=== PATIENT | male | born 1985 | race Caucasian/White ===

== ENCOUNTER 2023-06-24 15:13 | Outpatient (AMB) | payer OTHER, SELFPAY ==
--- NOTE | 2023-06-24 15:20 | A.OFFPC_ITS ---
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 for records Intake Note: pt is here for est care, patient states he has hx dm, high blood pressure Movie Shot Cameraman Required: No Accompanied by: Self / Same As Patient Allergies No Known Allergies Allergy (Verified 06/24/23 15:24) Medication List - Last Reconciled 06/24/23 by RISSA Hills lisinopril 2.5 mg PO DAILY metformin 850 mg PO BID Tobacco use date assessed: 06/24/23 Dental Screening Dental Screen Date: 06/24/23 Did you have a dental visit in the last 12 months?: Yes Did you have a dental problem in the last 6 months where you did not have access to dental care?: No Was dental information given to patient?: Patient has dentist HPI HPI Comments History of Present Illness Details Patient is a 37-year-old male who I am meeting for the 1st time. He has a past medical history significant for diabetes type 2, and hypertension. Patient has not seen a primary care provider in 18 years. Patient was recently at physical for work where his blood sugar was 373 In office today patient's A1c is 14. He is not currently taking any medication. He reports episodes of polyuria mostly at night. Denies polydipsia. Patient is not showing signs of ketoacidosis at the appointment today. Patient is due for microalbumin, fasting labs, referral for Podiatry and Ophthalmology. Patient denies chest pain, shortness a breath, polyuria, polydipsia, excessive sweating, confusion, dizziness, numbness. 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 1. Little interest or pleasure in doing things: not at all 2. Feeling down, depressed, or hopeless: not at all 3. Trouble falling or staying asleep, or sleeping too much: not at all 4. Feeling tired or having little energy: not at all 5. Poor appetite or overeating: not at all 6. Feeling bad about yourself - or that you are a failure or have let yourself or your family down: not at all 7. Trouble concentrating on things, such as reading the newspaper or watching television: not at all 8. Moving or speaking so slowly that other people could have noticed. Or the opposite - being so fidgety or restless that you have been moving around a lot more than usual: not at all 9. Thoughts that you would be better off or of hurting yourself in some way: not at all Total score: 0 Depression Screening Interpretation: Negative Depression Screening Done: Yes 51766 - PHQ-9 Billing: Yes Source: Developed by Drs. Campos Koch, Meghan Mac, Trey Lawson and colleagues, with an educational tammie from [employer]. AUDIT C Alcohol Use Questionnaire (AUDIT-C) 1. How often do you have a drink containing alcohol?: Monthly or less 2. How many drinks containing alcohol do you have on a typical day when you are drinking?: 1 or 2 3. How often do you have six or more drinks on one occasion?: Never Total Score: 1 Score Reviewed/Action Taken: Yes EVELYN-7 AMB Questionnaire EVELYN-7 Date EVELYN - 7 assessed: 06/24/23 Feeling nervous, anxious, or on edge: 0 = Not at all Not being able to stop or control worryin = Not at all Worrying too much about different things: 0 = Not at all Trouble relaxin = Not at all Being so restless that it is hard to sit still: 0 = Not at all Becoming easily annoyed or irritable: 0 = Not at all Feeling afraid as if something awful might happen: 0 = Not at all Total EVELYN-7 score (0-4 normal; 5-9 mild; 10-14 moderate; 15-21 severe): 0 Source: Developed by Drs. Campos Koch, Meghan Mac, Trey Lawson and colleagues, with an educational tammie from [employer]. EVELYN-7 Assessment Billing EVELYN-7 Assessment Tool: EVELYN-7 Assessment 17993 Review of Systems Const All systems reviewed & are unremarkable except as noted in HPI and below Denies body aches, Denies excessive sweating, Denies fatigue, Denies fever(s), Denies headache(s), Denies malaise and Denies night sweats Eyes Denies blurry vision, Denies diplopia and Denies loss of vision ENT Denies dizziness and Denies headache(s) Card Denies chest pain, Denies palpitations and Denies dyspnea Resp Denies dyspnea GI Denies diarrhea, Denies nausea and Denies vomiting Reports urinary frequency (Intermittently, at night only.) Musc Denies tingling Neuro Denies confusion, Denies dizziness, Denies headache(s), Denies loss of vision, Denies tingling and Denies paresthesias Psych Denies confusion, Denies homicidal ideation and Denies suicidal ideation Endo Denies excessive sweating, Denies fatigue, Denies polydipsia and Denies palpitations Physical exam (Primary Care) BMI result Body Mass Index 32.8 BMI Assessment/Plan discussion: High Depression Screening Interpretation: Negative Const Other: Appearance: Alert.? Oriented X3.? No acute distress.? Head: Normocephalic, atraumatic, Eyes: Pupils equal, round and reactive to light.? Neck: Normal inspection.? Neck supple.? CVS: Normal heart rate and rhythm.? Pulses normal.? Respiratory: No respiratory distress.? Breath sounds normal.? Skin: Skin warm and dry.? Normal skin color.? Normal skin turgor.? Neuro: Oriented X 3.? No motor deficit.? No sensory deficit. General: No confusion Orientation/consciousness: No confusion Neuro General: No confusion Results AMB Hemoglobin A1c AMB Hemoglobin A1c > 14 % Last Edit by Leroy Isbell CMA on 06/24/23 15 :49 AMB Random Glucose (hemocue) AMB Random Glucose (hemocue) 408 mg/dL Last Edit by Leroy Isbell CMA o n 06/24/23 16:08 Assessment and Plan Assessment & Plan (1) Uncontrolled type 2 diabetes mellitus with hyperglycemia: Comment: Patient has come be started on metformin 750 mg b.i.d. ER. Will start patient on 10 mg Jardiance p.o. in the morning. Patient has been educated on dietary modifications and exercise. Patient has been instructed to take blood sugar at least twice per day over the next 2 weeks. Patient is meeting with community nurse navigator to you have diabetic Education in 2 weeks. Patient has been educated on signs of worsening symptoms and when to report to the emergency room. Patient states he understands Code(s): E11.65 - Type 2 diabetes mellitus with hyperglycemia Plan: Take your medications as prescribed. If you were prescribed antibiotics today, it is important that you take your medication to their entirety, do not skip any doses, do not finish them early. Return to the emergency department with new or worsening symptoms. Such as fevers, chills, chest pain, shortness of breath, nausea, vomiting, dizziness, headache, vision changes, lethargy In case of emergency call 911 Orders: Orders Vitamin B12 Today Z13.21 - Encounter for screening for nutritional disorder Comprehensive Met. Panel Today Z91.89 - Other specified personal risk factors, not elsewhere classified Complete Blood Count Auto Diff Today Z13.0 - Encounter for screening for diseases of the blood and blood-forming organs and certain disorders involving the immune mechanism AMB Random Glucose (hemocue) Today Z13.9 - Encounter for screening, unspecified AMB Hemoglobin A1c Today Z13.9 - Encounter for screening, unspecified Vitamin B6 Today Z13.21 - Encounter for screening for nutritional disorder Vitamin D 25-OH (D2 and D3) Today Z13.21 - Encounter for screening for nutritional disorder UA CC w/rflx Micro + Cult Today Z13.89 - Encounter for screening for other disorder TSH reflex Free T4 Today Z13.29 - Encounter for screening for other suspected endocrine disorder Microalbumin, Random (w Creat) Today Referrals Podiatry Referral E11.65 - Type 2 diabetes mellitus with hyperglycemia Ophthalmology Referral E11.65 - Type 2 diabetes mellitus with hyperglycemia Medications: New lisinopril 2.5 mg PO DAILY 30 tabs 0RF empagliflozin (Jardiance) 10 mg PO DAILY 30 tabs 0RF metformin ER 750 mg PO BID 60 tabs 0RF blood-glucose meter (FreeStyle Lite Meter kit) Take blood sugar once per day 1 ea 0RF lancets (FreeStyle Lancets) Take blood sugar once per day 100 ea 0RF blood sugar diagnostic (FreeStyle Lite Strips) Take blood sugar once per day. 100 ea 0RF Coding Level of Care Code New Pt Level 4 (82770) Diagnoses Uncontrolled type 2 diabetes mellitus with hyperglycemia E11.65 Additional Codes EVELYN-7 Assessment Billing - EVELYN-7 Assessment Tool: EVELYN-7 Assessment 71413 ([id number]) Time Spent (min) 31
[2023-06-24 15:23] VITALS: BP 132/80; PULSE 78; O2SAT 98; BMI 32.8
== END 2023-06-24 16:08 | disposition home or self-care (01) ==
PROVIDERS: PCP Nurse Practitioner Family; Visit Provider Nurse Practitioner Primary Care
DX: E11.65 Type 2 diabetes mellitus with hyperglycemia (principal)
CPT/HCPCS: 82948; 83036; 99204

== ENCOUNTER 2023-07-07 12:55 | Outpatient (AMB) | payer OTHER, SELFPAY ==
--- NOTE | 2023-07-07 13:00 | A.OFFPC_ITS ---
Vital Signs 07/07/23 13:01 Height 5 ft 6 in Weight 207 lb BMI 33.4 BP 140/80 H Blood Pressure Location Rt brachial Position Sitting Pulse 78 Pulse Source Pulse Oximeter Pulse Oximetry (%) 98 Oxygen Delivery Method Room Air Intake Visit Reasons: follow up Intake Note: pt is here for follow up, patient hasnt been able to start jardiance due to pharmacy Allergies No Known Allergies Allergy (Verified 07/07/23 13:32) Medication List - Last Reconciled 07/07/23 by RISSA Hills blood sugar diagnostic (FreeStyle Lite Strips) Take blood sugar once per day. blood-glucose meter (FreeStyle Lite Meter kit) Take blood sugar once per day empagliflozin (Jardiance) 10 mg PO DAILY lancets (FreeStyle Lancets) Take blood sugar once per day lisinopril 5 mg PO DAILY metformin ER 750 mg PO BID Tobacco use date assessed: 06/24/23 Dental Screening Dental Screen Date: 06/24/23 HPI HPI Comments History of Present Illness Details Patient is a 37-year-old male in today for diabetic follow-up. He was seen in office 2 weeks prior and was placed on metformin and Jardiance. Patient has been asked to record sugar levels at home bring them to today's visit. He has referrals in for Podiatry and Ophthalmology. The appointment today patient states he has not been able to start the Jardiance medication. He has been instructed to pick that up the soon as possible from the pharmacy and start immediately. He reports blood sugar measurements at home have ranged between 180 and 210. States episodes of polyuria and polydipsia have decreased. He denies chest pain, SOB, Dizziness, Nausea, vomiting, or diarrhea. He will schedule a diabetic education session with community navigation in 2 week. He has been instructed to increase his lisinopril dose to 5mg PO daily, and to take blood pressure measurements at home. 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 Campos Koch, Meghan Mac, Trey Lawson and colleagues, with an educational tammie from [employer]. Review of Systems Const All systems reviewed & are unremarkable except as noted in HPI and below Denies chills and Denies fever(s) ENT Denies dizziness Card Denies chest pain and Denies dyspnea Resp Denies dyspnea GI Denies diarrhea, Denies nausea and Denies vomiting Musc Denies tingling Neuro Denies dizziness, Denies tingling and Denies paresthesias Endo Denies polydipsia and Denies polyuria Physical exam (Primary Care) Care Plan Goal for BP management: Patient will have lisinopril dose increased from 2.5-5 mg p.o. daily. Next steps: Patient has follow-up in 2 weeks with community nurse navigator for diabetic Education and blood pressure check Tobacco/Smoking Status: Tobacco use Status Tobacco use date assessed 06/24/23 07/07/23 13:01 Patient Tobacco Use Status Former Tobacco user 07/07/23 13:01 Tobacco use type Smokeless Tobacco 07/07/23 13:01 e-Cigarette/Vaping Use Currently Using 07/07/23 13:01 Const Other: Appearance: Alert.? Oriented X3.? No acute distress.? Head: Normocephalic, atraumatic CVS: Normal heart rate and rhythm.? Pulses normal.? Respiratory: No respiratory distress.? Breath sounds normal.? Skin: Skin warm and dry.? Normal skin color.? Normal skin turgor.? Extremities: No lower extremity edema.? Neuro: Oriented X 3.? No motor deficit.? No sensory deficit. Assessment and Plan Assessment & Plan (1) Uncontrolled type 2 diabetes mellitus with hyperglycemia: Comment: Patient has come be started on metformin 750 mg b.i.d. ER. Will start patient on 10 mg Jardiance p.o. in the morning. Patient has been educated on dietary modifications and exercise. Patient has been instructed to take blood sugar at least twice per day over the next 2 weeks. Patient is meeting with community nurse navigator to you have diabetic Education in 2 weeks. Patient has been educated on signs of worsening symptoms and when to report to the emergency room. Patient states he understands Patient will also be getting labs in the next week. Code(s): E11.65 - Type 2 diabetes mellitus with hyperglycemia (2) Hypertension: Comment: 5 mg lisinopril p.o. daily. Patient should have blood pressure recheck in 2 weeks with nurse navigator. Code(s): I10 - Essential (primary) hypertension Qualifiers: Hypertension type: primary hypertension Qualified Code(s): I10 - Essential (primary) hypertension Plan: Take your medications as prescribed. If you were prescribed antibiotics today, it is important that you take your medication to their entirety, do not skip any doses, do not finish them early. Return to the emergency department with new or orsening symptoms. Such as fevers, chills, chest pain, shortness of breath, nausea, vomiting, dizziness, headache, vision changes, lethargy In case of emergency call 911 Plan Follow-up with community nurse navigator in 2 weeks Coding Level of Care Code Est Pt Level 3 (49049) Diagnoses Uncontrolled type 2 diabetes mellitus with hyperglycemia E11.65 Primary hypertension I10 Hypertension type: primary hypertension Time Spent (min) 28
[2023-07-07 13:01] VITALS: BP 140/80; PULSE 78; O2SAT 98; BMI 33.4
== END 2023-07-07 13:23 | disposition home or self-care (01) ==
PROVIDERS: PCP Nurse Practitioner Family; Visit Provider Nurse Practitioner Primary Care
DX: E11.65 Type 2 diabetes mellitus with hyperglycemia (principal); I10 Essential (primary) hypertension
CPT/HCPCS: 99213

== ENCOUNTER 2023-08-04 15:06 | Outpatient (REF) | payer OTHER, SELFPAY ==
[2023-08-04 16:08] LABS: Appearance Urine Clear; Color Urine Yellow; Glucose Urine UA >=1000 mg/dL (Negative); Leukocyte Esterase Urine Negative (Negative); Nitrite Urine Negative (Negative); PH 7.5 (5.0-9.0); Specific Gravity - Urine >= 1.030 (1.005-1.025); UMIC TRIGGER UACC YES; Urine Blood Negative (Negative); Urine Ketones Trace mg/dL (Negative); Urine Protein Negative (Neg-Trace)
[2023-08-04 16:17] LABS: MANUAL DIFF FLAG NO
[2023-08-04 16:25] LABS: Basophils Percent Auto 0.3 % (0-2); Eosinophils Absolute Auto 0.1 X10*3/uL (0.0-0.4); Hematocrit 46.1 % (42.0-52.0); Hemoglobin 15.4 g/dl (14.0-18.0); Imm Gran Abs Auto 0.03 X10*3/uL (0.00-0.03); Imm Gran Pct Auto 0.3 % (0.0-0.4); Lymphocytes Absolute Auto 2.5 X10*3/uL (1.2-4.9); Lymphocytes Percent Auto 29.4 % (20-40); Mean Corpuscular HGB Conc 33.4 g/dl (31.0-36.0); Mean Corpuscular Hemoglobin 29.4 pg (27.0-33.0); Monocytes Absolute Auto 0.6 X10*3/uL (0.1-1.2); Monocytes Percent Auto 6.7 % (2-11); Neutrophils Absolute Auto 5.4 x10*3/uL (2.0-8.3); Neutrophils Percent Auto 62.3 % (45-73); Platelet Count 258 X10*3/uL (160-400); Red Blood Count 5.24 X10*6/uL (4.60-5.80); Red Cell Distribution Width 12.6 % (11.0-16.0); White Blood Count 8.6 X10*3/uL (4.8-10.8)
[2023-08-04 16:42] LABS: Alanine Aminotransferase 38 U/L (0-40); Albumin Level 4.8 g/dL (3.5-5.0); Alkaline Phosphatase 50 U/L (39-117); Anion Gap 10 (12-20); Aspartate Amino Transferase 23 U/L (5-37); Bilirubin Total 0.5 mg/dL (0.0-1.0); Blood Urea Nitrogen 13 mg/dL (9-16); Calcium 9.9 mg/dL (8.4-10.2); Carbon Dioxide 29 mmol/L (22-29); Chloride 105 mmol/L (96-108); Estimated Glomerular Filt Rate > 60; Glucose Random 110 mg/dL (60-115); Potassium 4.1 mmol/L (3.3-5.1); Sodium 140 mmol/L (135-145); Total Protein 7.8 g/dL (6.5-8.0)
[2023-08-04 16:58] LABS: TSH reflex Free T4 0.85 uIU/mL (0.32-4.0)
[2023-08-04 17:06] LABS: Creatinine Urine 77.66 mg/dL; Microalbum/Creatinine Ratio Ur 7.7 ug/mg cr (<30)
[2023-08-04 17:29] LABS: Vitamin B12 528 pg/mL (200-900)
[2023-08-04 18:48] LABS: Bacteria Urine None Seen (None Seen); Hyaline Casts Urine 0-2 /LPF (0-2); RBC Urine 0-2 /HPF (0-2); Squamous Epithelial Cell Urine 0-2 /HPF (0-2); WBC Urine 0-5 /HPF (0-5)
[2023-08-09 15:03] LABS: Vitamin B6 16.5 ng/mL (2.1-21.7)
[2023-08-09 15:43] LABS: Vitamin D 25-OH, D2 <4 ng/mL; Vitamin D 25-OH, D3 22 ng/mL; Vitamin D 25-OH, Total 22 ng/mL (30-100)
== END 2023-08-04 15:07 | disposition home or self-care (01) ==
LOC: HO.HMGCLDS 15:06
PROVIDERS: PCP Nurse Practitioner Primary Care; Visit Provider Nurse Practitioner Primary Care
DX: Z13.21 Encounter for screening for nutritional disorder (principal); Z91.89 Other specified personal risk factors, not elsewhere classified; Z13.0 Encounter for screening for diseases of the blood and blood-forming organs and certain disorders involving the immune mechanism; Z13.29 Encounter for screening for other suspected endocrine disorder
CPT/HCPCS: 36415; 80053; 81001; 82043; 82306; 82570; 82607; 84207; 84443; 85025

== ENCOUNTER 2023-08-09 13:46 | Outpatient (AMB) | payer OTHER, SELFPAY ==
--- NOTE | 2023-08-09 14:06 | A.OFFPC_ITS ---
Vital Signs 08/09/23 14:08 Height 5 ft 6 in Weight 213 lb BMI 34.4 BP 116/78 Blood Pressure Location Lt brachial Position Sitting Pulse 93 Pulse Source Pulse Oximeter Pulse Oximetry (%) 98 Oxygen Delivery Method Room Air Intake Visit Reasons: follow up for DB Intake Note: Pt is here for 3 mo f/u for diabetes Allergies No Known Allergies Allergy (Verified 08/09/23 15:31) Medication List - Last Reconciled 08/09/23 by RISSA Hills blood sugar diagnostic (FreeStyle Lite Strips) Take blood sugar once per day. blood-glucose meter (FreeStyle Lite Meter kit) Take blood sugar once per day empagliflozin (Jardiance) 10 mg PO DAILY lancets (FreeStyle Lancets) Take blood sugar once per day lisinopril 2.5 mg PO DAILY metformin ER 750 mg PO BID Tobacco use date assessed: 08/09/23 Dental Screening Dental Screen Date: 06/24/23 HPI HPI Comments History of Present Illness Details Patient is in for follow-up diabetes type 2. He was recently started on metformin 750 mg ER b.i.d., and Jardiance 10 mg p.o. daily. He was also started on lisinopril 2.5 mg p.o. daily. Patient is due for eye exam, has referral in. Patient is due for Podiatry, has referral in. He is able to take blood sugar measurements at home and states that they have elevated at the 130 to 140s range. Denies symptoms of polyuria polydipsia. When patient 1st status care with the office 2 months prior in office POC was 408. Newly diagnosed type 2 diabetic. States that he feels much better since starting the medication. Patient will have his Jardiance titrated up to 25 mg p.o. daily. He will be instructed to continue taking blood sugar measurements at home. Did have preliminary discussion about the potential for starting Tirzepatide if sugars re main elevated at home. Patient has been educated on foods to avoid. States he understands. 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 Campos Koch, Meghan Mac, Trey Lawson and colleagues, with an educational tammie from [employer]. Review of Systems Const All systems reviewed & are unremarkable except as noted in HPI and below Physical exam (Primary Care) Vital Signs: Last Vital Signs Pulse 93 08/09/23 14:08 BP 116/78 08/09/23 14:08 Pulse Ox 98 08/09/23 14:08 Oxygen Delivery Method Room Air 08/09/23 14:08 Care Plan Goal for BP management: BP is controlled. BMI result Body Mass Index 34.4 Tobacco/Smoking Status: Tobacco use Status Tobacco use date assessed 08/09/23 08/09/23 14:12 Patient Tobacco Use Status Former Tobacco user 08/09/23 14:12 Tobacco use type Smokeless Tobacco 08/09/23 14:12 e-Cigarette/Vaping Use Currently Using 08/09/23 14:12 Const Other: Appearance: Alert.? Oriented X3.? No acute distress.? Head: Normocephalic, atraumatic, Eyes: Sclera white. Neck: Normal inspection.? Neck supple.? CVS: Normal heart rate and rhythm.? Pulses normal.? Respiratory: No respiratory distress.? Breath sounds normal.? Neuro: Oriented X 3.? No motor deficit.? No sensory deficit. Results Reviewed Results Reviewed: Sodium 140 135-145 mmol/L Potassium 4.1 3.3-5.1 mmol/L CL 105 96-108 mmol/L CO2 29 22-29 mmol/L Gap 10 L 12-20 BUN 13 9-16 mg/dL Creat 0.84 0.5-1.4 mg/dL EGFR > 60 NOTE: For -Serbian individuals, multiply the result by 1.210. Chronic Kidney Disease: Estimated GFR < 60 mL/min/1.73m2 Severe Kidney Disease: Estimated GFR < 15 mL/min/1.73m2 Glucose, Random 110 60-115 mg/dL CA 9.9 8.4-10.2 mg/dL Total Bili 0.5 0.0-1.0 mg/dL AST (GOT) 23 5-37 U/L ALT (GPT) 38 0-40 U/L Protein, Total 7.8 6.5-8.0 g/dL Alb 4.8 3.5-5.0 g/dL Alk Phos 50 39-117 U/L TSH 0.85 0.32-4.0 uIU/mL Assessment and Plan Assessment & Plan Orders: Orders Lipid Panel Today E11.65 - Type 2 diabetes mellitus with hyperglycemia Medications: New empagliflozin (Jardiance) 25 mg PO DAILY 90 tabs 0RF Coding Level of Care Code Est Pt Level 3 (44121) Time Spent (min) 23
[2023-08-09 14:08] VITALS: BP 116/78; PULSE 93; O2SAT 98; BMI 34.4
== END 2023-08-09 14:43 | disposition home or self-care (01) ==
PROVIDERS: PCP Nurse Practitioner Family; Visit Provider Nurse Practitioner Primary Care
DX: E11.65 Type 2 diabetes mellitus with hyperglycemia (principal)
CPT/HCPCS: 99213

== ENCOUNTER 2023-10-26 14:21 | Outpatient (AMB) | payer OTHER, SELFPAY ==
[2023-10-26 14:25] VITALS: BP 142/80; PULSE 80; O2SAT 97; BMI 34.7
--- NOTE | 2023-10-26 14:25 | A.OFFPC_ITS ---
Vital Signs 10/26/23 14:25 Height 5 ft 6 in Weight 215 lb BMI 34.7 BP 142/80 H Blood Pressure Location Lt brachial Position Sitting Pulse 80 Pulse Source Pulse Oximeter Pulse Oximetry (%) 97 Intake Visit Reasons: 3M F/U DM labs Intake Note: pt is here for 3 month follow up regarding DM Occupational Rehabilitation Aide Required: No Accompanied by: Self / Same As Patient Allergies No Known Allergies Allergy (Verified 10/26/23 14:25) Medication List - Last Reconciled 10/26/23 by JAMES Vu blood sugar diagnostic (FreeStyle Lite Strips) Take blood sugar once per day. blood-glucose meter (FreeStyle Lite Meter kit) Take blood sugar once per day empagliflozin (Jardiance) 25 mg PO DAILY lancets (FreeStyle Lancets) Take blood sugar once per day lisinopril 5 mg PO DAILY metformin ER 750 mg PO BID Tobacco use date assessed: 08/09/23 Dental Screening Dental Screen Date: 06/24/23 HPI 3M F/U DM labs HPI Details Pt is a diabetic, on an TAMMIE. A1C in office today is 6.8. Microalbumin is up to date. Denies polyuria, polydipsia, and neuropathy. Pt denies any signs and symptoms of hypoglycemia and does know how to correct it. Will start mounjaro 2.5mg. WIll also send low dose statin. HTN: increasing lisinopril from 5mg to 10mg, encouraged pt to take his BP at home. [facility] Surgical History No pertinent past surgical history Family History Mother Heart problem Father Diabetes Social History Housing: Apartment Alcohol intake: current Alcohol intake frequency: holidays/special occasions only Alcohol type: beer Patient Tobacco Use Status: Former Tobacco user Tobacco use type: Smokeless Tobacco e-Cigarette/Vaping Use: Currently Using service: No Current occupational status: employed Current occupation: [employer] Current occupational exposures/hazards: No Cognitive needs: No Hearing needs: No Vision needs: No Questionnaire PHQ-9 Over the last 2 weeks, how often have you been bothered by any of the following problems? 1. Little interest or pleasure in doing things: not at all 2. Feeling down, depressed, or hopeless: not at all 3. Trouble falling or staying asleep, or sleeping too much: not at all 4. Feeling tired or having little energy: not at all 5. Poor appetite or overeating: not at all 6. Feeling bad about yourself - or that you are a failure or have let yourself or your family down: not at all 7. Trouble concentrating on things, such as reading the newspaper or watching television: not at all 8. Moving or speaking so slowly that other people could have noticed. Or the opposite - being so fidgety or restless that you have been moving around a lot more than usual: not at all 9. Thoughts that you would be better off or of hurting yourself in some way: not at all Total score: 0 Depression Screening Interpretation: Negative Depression Screening Done: Yes 06331 - PHQ-9 Billing: Yes Source: Developed by Drs. Campos Koch, Meghan Mac, Trey Lawson and colleagues, with an educational tammie from [employer]. Thrive Questionnaire Date Thrive assessed: 10/26/23 I am a: Patient What is your living situation today?: I have a steady place to live Within the past 12 months, did the food you bought not last and you didn't have the money to get more?: Never true Within the past 12 months, did you worry whether your food would run out before you got money to buy more?: Never true Do you have trouble paying for medicines?: No Do you have trouble getting transportation to medical appointments?: No Do you have trouble paying your heating and electricity bill?: No Do you have trouble taking care of your child, family member or friend?: No Do you have trouble with day-to-day activities such as bathing, preparing meals, shopping, managing finances, etc.?: No Are you currently unemployed and looking for a job?: No Are you interested in more education?: No Please select the resources that you would like help with: None Currently or been in a relationship where the following occur: No concerns reported THRIVE Score: 0 AUDIT C Alcohol Use Questionnaire (AUDIT-C) 1. How often do you have a drink containing alcohol?: Never 3. How often do you have six or more drinks on one occasion?: Never Total Score: 0 Score Reviewed/Action Taken: Yes EVELYN-7 AMB Questionnaire EVELYN-7 Date EVELYN - 7 assessed: 10/26/23 Feeling nervous, anxious, or on edge: 0 = Not at all Not being able to stop or control worryin = Not at all Worrying too much about different things: 0 = Not at all Trouble relaxin = Not at all Being so restless that it is hard to sit still: 0 = Not at all Becoming easily annoyed or irritable: 0 = Not at all Feeling afraid as if something awful might happen: 0 = Not at all Total EVELYN-7 score (0-4 normal; 5-9 mild; 10-14 moderate; 15-21 severe): 0 Source: Developed by Drs. Campos Koch, Meghan Mac, Trey Lawson and colleagues, with an educational tammie from [employer]. EVELYN-7 Assessment Billing EVELYN-7 Assessment Tool: EVELYN-7 Assessment 05126 Review of Systems Const Reports as per HPI Physical exam (Primary Care) Vital Signs: Last Vital Signs Pulse 80 10/26/23 14:25 BP 142/80 H 10/26/23 14:25 Pulse Ox 97 10/26/23 14:25 BMI result Body Mass Index 34.7 Tobacco/Smoking Status: Tobacco use Status Tobacco use date assessed 08/09/23 10/26/23 14:25 Patient Tobacco Use Status Former Tobacco user 10/26/23 14:25 Tobacco use type Smokeless Tobacco 10/26/23 14:25 e-Cigarette/Vaping Use Currently Using 10/26/23 14:25 PHQ-9: PHQ-9 Score PHQ-9: Total score 0 10/26/23 14:40 Depression Screening Interpretation: Negative Thrive Assessment: Date of Thrive Assessment Date Thrive assessed 10/26/23 10/26/23 14:26 Currently or been in a relationship where the following occur: No concerns reported Const General: cooperative Nutritional Appearance: obese Orientation/consciousness: patient oriented x3 Resp Effort & Inspection: normal respiratory effort Auscultation: clear to auscultation bilaterally Cardio Rate: regular rate Rhythm: regular rhythm Heart sounds: S1 normal heart sound present and S2 normal heart sound present Neuro General: patient oriented x3 Extrem Other: bilat feet: + sensation with use of monofilament, feet intact, onychomycosis noted bilat Psych Appearance: grossly normal Mental Status: mental status grossly normal Speech and movement: Normal speech and movement present Affect: normal affect Attitude: cooperative Thought process: Normal thought process present Thought content: Normal thought content present Insight: Good insight present (Psych) Judgement: Good judgement present (Psych) Results AMB Hemoglobin A1c AMB Hemoglobin A1c 6.8 % Last Edit by Leroy Isbell CMA on 10/26/23 14: 54 Assessment and Plan Assessment & Plan (1) Uncontrolled type 2 diabetes mellitus with hyperglycemia: Code(s): E11.65 - Type 2 diabetes mellitus with hyperglycemia Plan: Labs ordered, starting mounjaro, starting statin (2) Hypertension: Code(s): I10 - Essential (primary) hypertension Qualifiers: Hypertension type: primary hypertension Qualified Code(s): I10 - Essential (primary) hypertension Plan: lisinopril increased from 5mg to 10mg, encouraged BPs at home. Plan The patient agreed to the use of a medical billing coordinator for this encounter. Scribed for Jaime Harper TRACK REPAIR LABORER- by Bhavani Peres medical billing coordinator, on 10/26/2023 at 14:45 EST. Orders: Orders TSH reflex Free T4 Today E11.65 - Type 2 diabetes mellitus with hyperglycemia UA CC w/rflx Micro + Cult Today E11.65 - Type 2 diabetes mellitus with hyperglycemia Lipid Panel Today E11.65 - Type 2 diabetes mellitus with hyperglycemia AMB Hemoglobin A1c Today Z13.9 - Encounter for screening, unspecified Complete Blood Count Auto Diff Today E11.65 - Type 2 diabetes mellitus with hyperglycemia Comprehensive [place]. Panel Fast Today E11.65 - Type 2 diabetes mellitus with hyperglycemia Referrals Ophthalmology Referral E11.65 - Type 2 diabetes mellitus with hyperglycemia Medications: New atorvastatin 10 mg PO BEDTIME 90 tabs 0RF tirzepatide (Mounjaro) for 4 weeks 2.5 mg (0.5 mL) subcut QWEEK 2 mL 0RF Changed From lisinopril 5 mg PO DAILY 90 tabs 0RF To lisinopril 10 mg PO DAILY 90 tabs 0RF Coding Level of Care Code New Pt Level 3 (77133) Diagnoses Uncontrolled type 2 diabetes mellitus with hyperglycemia E11.65 Primary hypertension I10 Hypertension type: primary hypertension Additional Codes EVELYN-7 Assessment Billing - EVELYN-7 Assessment Tool: EVELYN-7 Assessment 28034 ([id number])
== END 2023-10-26 14:58 | disposition home or self-care (01) ==
PROVIDERS: PCP Nurse Practitioner Primary Care; Visit Provider Nurse Practitioner Family
DX: E11.65 Type 2 diabetes mellitus with hyperglycemia (principal); I10 Essential (primary) hypertension
CPT/HCPCS: 83036; 99203

== ENCOUNTER 2024-03-03 15:05 | Outpatient (REF) | payer OTHER, SELFPAY ==
[2024-03-03 16:05] LABS: MANUAL DIFF FLAG NO
[2024-03-03 16:12] LABS: Appearance Urine Clear; Color Urine Yellow; Glucose Urine UA >=1000 mg/dL (Negative); Leukocyte Esterase Urine Negative (Negative); Nitrite Urine Negative (Negative); Specific Gravity - Urine >= 1.030 (1.005-1.025); UMIC TRIGGER UACC YES; Urine Blood Negative (Negative); Urine Ketones 40 mg/dL (Negative); Urine Protein Negative (Neg-Trace)
[2024-03-03 16:12] LABS: Basophils Percent Auto 0.5 % (0-2); Eosinophils Absolute Auto 0.1 X10*3/uL (0.0-0.4); Eosinophils Percent Auto 1.4 % (0-4); Hematocrit 47.3 % (42.0-52.0); Hemoglobin 15.4 g/dl (14.0-18.0); Imm Gran Abs Auto 0.02 X10*3/uL (0.00-0.03); Imm Gran Pct Auto 0.3 % (0.0-0.4); Lymphocytes Absolute Auto 2.3 X10*3/uL (1.2-4.9); Lymphocytes Percent Auto 35.3 % (20-40); Mean Corpuscular HGB Conc 32.6 g/dl (31.0-36.0); Mean Corpuscular Hemoglobin 28.6 pg (27.0-33.0); Mean Corpuscular Volume 87.8 fL (80.0-98.0); Mean Platelet Volume 9.7 fL (9.4-12.4); Monocytes Absolute Auto 0.6 X10*3/uL (0.1-1.2); Monocytes Percent Auto 9.9 % (2-11); Neutrophils Absolute Auto 3.4 x10*3/uL (2.0-8.3); Neutrophils Percent Auto 52.6 % (45-73); Platelet Count 258 X10*3/uL (160-400); Red Blood Count 5.39 X10*6/uL (4.60-5.80); Red Cell Distribution Width 12.8 % (11.0-16.0); White Blood Count 6.5 X10*3/uL (4.8-10.8)
[2024-03-03 16:33] LABS: Alanine Aminotransferase 33 U/L (0-40); Albumin Level 4.8 g/dL (3.5-5.0); Alkaline Phosphatase 51 U/L (39-117); Anion Gap 11 (12-20); Aspartate Amino Transferase 27 U/L (5-37); Bilirubin Total 0.8 mg/dL (0.0-1.0); Blood Urea Nitrogen 11 mg/dL (9-16); Calcium 9.4 mg/dL (8.4-10.2); Carbon Dioxide 25 mmol/L (22-29); Chloride 108 mmol/L (96-108); Cholesterol 127 mg/dL (<200); Estimated Glomerular Filt Rate > 60; Glucose Fasting 90 mg/dL (60-99); HDL Cholesterol 43 mg/dL (>40); LDL Cholesterol Calculated 69 mg/dL (<100); Potassium 4.3 mmol/L (3.3-5.1); Sodium 140 mmol/L (135-145); Total Protein 7.7 g/dL (6.5-8.0); Triglycerides 75 mg/dL (<150)
[2024-03-03 16:50] LABS: TSH reflex Free T4 0.61 uIU/mL (0.32-4.0)
[2024-03-03 17:05] LABS: Bacteria Urine None Seen (None Seen); Hyaline Casts Urine 0-2 /LPF (0-2); RBC Urine 0-2 /HPF (0-2); Squamous Epithelial Cell Urine 0-2 /HPF (0-2); WBC Urine 0-5 /HPF (0-5)
== END 2024-03-03 15:06 | disposition home or self-care (01) ==
LOC: HO.HMGCLDS 15:05
PROVIDERS: PCP Nurse Practitioner Family; Visit Provider Nurse Practitioner Family
DX: E11.65 Type 2 diabetes mellitus with hyperglycemia (principal)
CPT/HCPCS: 36415; 80053; 80061; 81001; 84443; 85025

== ENCOUNTER 2024-03-09 11:13 | Outpatient (AMB) | payer OTHER, SELFPAY ==
[2024-03-09 11:15] VITALS: BP 130/80; PULSE 72; O2SAT 98; BMI 32.8
--- NOTE | 2024-03-09 11:15 | A.OFFPC_ITS ---
Vital Signs 03/09/24 11:15 Height 5 ft 6 in Weight 203 lb BMI 32.8 BP 130/80 Blood Pressure Location Lt brachial Position Sitting Pulse 72 Pulse Source Pulse Oximeter Pulse Oximetry (%) 98 Intake Visit Reasons: follow up - DM Intake Note: pt is here for DM f/up Slip Laster Required: No Accompanied by: Self / Same As Patient Allergies No Known Allergies Allergy (Verified 03/09/24 11:15) Medication List - Last Reconciled 03/09/24 by JAMES Vu atorvastatin 10 mg PO BEDTIME blood sugar diagnostic (FreeStyle Lite Strips) Take blood sugar once per day. blood-glucose meter (FreeStyle Lite Meter kit) Take blood sugar once per day empagliflozin (Jardiance) 25 mg PO DAILY lancets (FreeStyle Lancets) Take blood sugar once per day lisinopril 10 mg PO DAILY metformin ER 750 mg PO BID tirzepatide (Mounjaro) 2.5 mg (0.5 mL) subcut QWEEK Tobacco use date assessed: 03/09/24 Dental Screening Dental Screen Date: 03/09/24 Did you have a dental visit in the last 12 months?: Yes Did you have a dental problem in the last 6 months where you did not have access to dental care?: No Was dental information given to patient?: Patient has dentist HPI follow up - DM HPI Details Patient is here for follow-up for diabetes. His A1c is noted to be 6.1. His labs were pretty impressive overall. He diet denies any polyuria, polydipsia, neuropathy. He is currently on a statin and an Azael. He does report with COPD 1 agonist (Mounjaro) he was getting a little bit of itching the last 2 doses. He denied any shortness of breath or signs of anaphylaxis. He reports the chin would come the next morning, then just cease. I will have him take Benadryl approximately 45 minutes to hours our before his GLP 1 dose. [facility] Surgical History No pertinent past surgical history Family History Mother Heart problem Father Diabetes Social History Housing: Apartment Alcohol intake: current Alcohol intake frequency: holidays/special occasions only Alcohol type: beer Patient Tobacco Use Status: Former Tobacco user Tobacco use type: Smokeless Tobacco e-Cigarette/Vaping Use: Currently Using service: No Current occupational status: employed Current occupation: [employer] Current occupational exposures/hazards: No Cognitive needs: No Hearing needs: No Vision needs: No Questionnaire PHQ-9 Over the last 2 weeks, how often have you been bothered by any of the following problems? 1. Little interest or pleasure in doing things: not at all 2. Feeling down, depressed, or hopeless: not at all 3. Trouble falling or staying asleep, or sleeping too much: not at all 4. Feeling tired or having little energy: not at all 5. Poor appetite or overeating: not at all 6. Feeling bad about yourself - or that you are a failure or have let yourself or your family down: not at all 7. Trouble concentrating on things, such as reading the newspaper or watching television: not at all 8. Moving or speaking so slowly that other people could have noticed. Or the opposite - being so fidgety or restless that you have been moving around a lot more than usual: not at all 9. Thoughts that you would be better off or of hurting yourself in some way: not at all Total score: 0 Depression Screening Interpretation: Negative Depression Screening Done: Yes 45463 - PHQ-9 Billing: Yes Source: Developed by Drs. Campos Koch, Meghan Mac, Trey Lawson and colleagues, with an educational tammie from [email or web address]. Thrive Questionnaire Date Thrive assessed: 03/09/24 I am a: Patient What is your living situation today?: I have a steady place to live Within the past 12 months, did the food you bought not last and you didn't have the money to get more?: Never true Within the past 12 months, did you worry whether your food would run out before you got money to buy more?: Never true Do you have trouble paying for medicines?: No Do you have trouble getting transportation to medical appointments?: No Do you have trouble paying your heating and electricity bill?: No Do you have trouble taking care of your child, family member or friend?: No Do you have trouble with day-to-day activities such as bathing, preparing meals, shopping, managing finances, etc.?: No Are you currently unemployed and looking for a job?: No Are you interested in more education?: No Please select the resources that you would like help with: None Currently or been in a relationship where the following occur: I choose not to answer THRIVE Score: 0 AUDIT C Alcohol Use Questionnaire (AUDIT-C) 1. How often do you have a drink containing alcohol?: Never 3. How often do you have six or more drinks on one occasion?: Never Total Score: 0 Score Reviewed/Action Taken: Yes EVELYN-7 AMB Questionnaire EVELYN-7 Date EVELYN - 7 assessed: 03/09/24 Feeling nervous, anxious, or on edge: 0 = Not at all Not being able to stop or control worryin = Not at all Worrying too much about different things: 0 = Not at all Trouble relaxin = Not at all Being so restless that it is hard to sit still: 0 = Not at all Becoming easily annoyed or irritable: 0 = Not at all Feeling afraid as if something awful might happen: 0 = Not at all Total EVELYN-7 score (0-4 normal; 5-9 mild; 10-14 moderate; 15-21 severe): 0 Source: Developed by Drs. Campos Koch, Meghan Mac, Trey Lawson and colleagues, with an educational tammie from [email or web address]. EVELYN-7 Assessment Billing EVELYN-7 Assessment Tool: EVELYN-7 Assessment 34085 Physical exam (Primary Care) Vital Signs: Last Vital Signs Pulse 72 03/09/24 11:15 BP 130/80 03/09/24 11:15 Pulse Ox 98 03/09/24 11:15 BMI result Body Mass Index 32.8 Tobacco/Smoking Status: Tobacco use Status Tobacco use date assessed 03/09/24 03/09/24 11:17 Patient Tobacco Use Status Former Tobacco user 03/09/24 11:17 Tobacco use type Smokeless Tobacco 03/09/24 11:17 e-Cigarette/Vaping Use Currently Using 03/09/24 11:17 PHQ-9: PHQ-9 Score PHQ-9: Total score 0 03/09/24 11:17 Depression Screening Interpretation: Negative Thrive Assessment: Date of Thrive Assessment Date Thrive assessed 03/09/24 03/09/24 11:17 Currently or been in a relationship where the following occur: I choose not to answer Const General: cooperative, healthy appearing, comfortable, no acute distress and well developed Resp Effort & Inspection: normal respiratory effort Cardio Rate: regular rate Rhythm: regular rhythm Heart sounds: S1 normal heart sound present, S2 normal heart sound present and no murmurs Extrem Other: feet are intact bilat, + sensation with use of monofilament. Onychomycosis noted bilat. Psych Appearance: grossly normal Mental Status: mental status grossly normal Speech and movement: Normal speech and movement present Affect: normal affect Attitude: cooperative Thought process: Normal thought process present Thought content: Normal thought content present Insight: Good insight present (Psych) Judgement: Good judgement present (Psych) Results AMB Hemoglobin A1c AMB Hemoglobin A1c 6.1 % Last Edit by Leroy Isbell CMA on 03/09/24 11: 51 Immunizations pneumoc 20-richard conj-dip cr(PF) 0.5 mL IM syringe Performing Provider: JAMES Vu Performing Location: [facility] Administered by: Leroy Isbell CMA on 03/09/24 12:29 Dose Route Admin Location Dispensed Lot Number Expiration Date [facility] Manager Of Pmo 0.5 mL IM Right Deltoid 0.5 mL [id number] 06/11/25 8251-2850-47 WYETH/PFIZER VIS Given Date VIS Provided VIS Publication Date 03/09/24 Single Vaccine 21 Eligibility Eligibility Date Funding Source Not [facility] [place] Eligible 03/09/24 Private Results Reviewed Results Reviewed: Laboratory Last Values Hgb A1c (Clinic) 6.1 % (4.0-6.0) H 03/09/24 11:49 Coding Level of Care Code Est Pt Level 3 (49005) Diagnoses Onychomycosis B35.1 Controlled diabetes mellitus E11.9 Additional Codes EVELYN-7 Assessment Billing - EVELYN-7 Assessment Tool: EVELYN-7 Assessment 17998 ([id number]) PHQ-9 - 74964 - PHQ-9 Billing: Yes ([id number]) Assessment & Plan Assessment & Plan (1) Onychomycosis: Code(s): B35.1 - Tinea unguium Category: Medical (2) Controlled diabetes mellitus: Code(s): E11.9 - Type 2 diabetes mellitus without complications Category: Medical Plan well controlled DM, referring to podiatry Orders: Orders Pneumococcal 20 Immunization Today Z23 - Encounter for immunization AMB Hemoglobin A1c Today Z13.9 - Encounter for screening, unspecified Referrals Podiatry Referral B35.1 - Tinea unguium Medications: Refilled empagliflozin (Jardiance) 25 mg PO DAILY 90 tabs 1RF
== END 2024-03-09 12:15 | disposition home or self-care (01) ==
PROVIDERS: PCP Nurse Practitioner Family; Visit Provider Nurse Practitioner Family
DX: B35.1 Tinea unguium (principal); E11.9 Type 2 diabetes mellitus without complications; Z23 Encounter for immunization; Z13.9 Encounter for screening, unspecified

== ENCOUNTER → 2024-03-09 11:13 | Outpatient (BNVA) | payer OTHER, SELFPAY | PROVIDERS: PCP Nurse Practitioner Family; Visit Provider Nurse Practitioner Family | DX: E11.9 Type 2 diabetes mellitus without complications (principal); B35.1 Tinea unguium; Z23 Encounter for immunization | CPT/HCPCS: 83036; 90471; 90677; 96127 ==

== ENCOUNTER 2024-09-20 08:17 | Outpatient (AMB) | payer OTHER, SELFPAY ==
--- OUTSIDE RECORDS SUMMARY | 2024-07-11 05:30 | XMS_ITS ---
[facility] Address [address] [place] [address] Care Team Providers Care Resource Technician Name Role Phone Jaime Smith Primary Care Provider Unav ailable David Kent Unavailable [phone] Marylou Vance Unavailable [phone] Encounters Encounter Location Date Provider Diagnosis [address] [address] 07/11/2024 Marylou Vance Plan Of Treatment Next Appt Details Provider Name:David Kent , 10/16/2024 01:30:00 PM, [address] [place] [address], [id number], Progress Notes * WILLOW DavidjayyDOB:1985 (38 yo M)Acc No.[id number]:07/11/2024 Progress Notes Patient: Lazaro PRESTON Provider: Mathew Vance DPM :1985 A ge:38 Y S ex:Male Date:07/11/2024 Address:[address] [place] [address] [id number] Pcp:JAIDEN Barros Subjective: * Chief Complaints: * * Medical History: Objective: * Vitals: Assessment: Plan: * Treatment: * Images: * The named appointment provid er may or may not be the originator of this progress note, and it is not deemed complete until electronically signed by the appointment provider. Sign off status: Pending * Provider: Mathew Vance, NÉSTOR Date: 0 07/11/2024 Generated for Benjamin correia/Silvano/Prince on: 0 09/20/2024 08:20 AM EDT
--- OUTSIDE RECORDS SUMMARY | 2024-09-20 08:21 | XMS_ITS | Clinical Summary ---
Author Organization [facility] Address [address] [address] Phone Care Team Providers Care Grocery Deliverer Name Role Phone Pcp, Unknown Primary Care Provider Unavailabl e Allergies No known active allergies Medications No known medications Social History Tobacco Use Types Packs/Day Years Used Date Smoking Tobacco: Never Smokeless Tobacco: Never Tobacco Cessation:Counseling Given: Not Answered Alcohol Use Standard Drinks/Week Comments Not Currently 0 (1 standard drink = 0.6 oz pur e alcohol) Education Answer Date Recorded Are you interested in more education? Not on meche e 05/04/2023 Are you concerned about learning? Not on file 05/04/2023 No 05/04/2023 No 05/04/2023 Digital Access Answer Date Recorded No 05/04/2023 No 05/04/2023 Reliable internet access at home? Not on file 05/04/2023 Device with a working camera? Not on file Sex and Gender Information Value Date Recorded Sex Assigned at Not on file Legal Sex Male 12:21 PM EDT Gender Identity Not on file Sexual Orientation Not on file Last Filed Vital Signs Vital Sign Reading Time Taken Comments Blood Pressure 142/88 05/05/2023 3:15 PM EDT Pulse 97 05/05/2023 3:15 PM EDT Temperature 36.2 C (97.1 F) 05/05/2023 3:15 PM EDT Respiratory Rate 16 05/05/2023 3:15 PM EDT Oxygen Saturation 100% 05/05/2023 3:15 PM EDT Inhaled Oxygen Concentration - - Weight 95.3 kg (210 lb) 05/05/2023 3:15 PM EDT Height 165.1 cm (5' 5 ) 05/05/2023 3:15 PM EDT Body Mass Index 34.95 05/05/2023 3:15 PM EDT Plan of Treatment Health Maintenance Due Date Last Done Comments Adult Td,Tdap Booster 1984 LIPID PANEL 1984 DEPRESSION SCREENING 1996 HEPATITIS C SCREENING 2002 HIV ONE-TIME SCREENING (18-6 5 YEARS) 2002 SCREENING FOR DIABETES 12/12/2019 COVID-19 VACCINE (2023-2 5 season) 2023 SMOKING STATUS SCREENING (On ce After 26 Yrs) Completed 05/05/2023 HEPATITIS A VACCINES Aged Out No long er eligible based on patient's age to complete this topic HIB VACCINES Aged Out No longer eligi ble based on patient's age to complete this topic MENINGOCOCCAL VACCINES (ACWY) Aged Out No longer eligible based on patient's age to complete this topic MENINGOCOCCAL VACCINES (B) Aged Out N o longer eligible based on patient's age to complete this topic PNEUMOCOCCAL VACCINES (0-49 years) Aged Out No longer eligible based on patient's age to complete this topic Medical Devices Not on file Insurance S Member Subscriber Plan / Payer (Ef fective 2021-Present) Name:Lazaro Garcia Relation to Subscriber:Self Name:Lazaro Garcia Payer ID:Not on file Type:PPO Address: [place] [id number] [place], [place] [address] [place], [place] [address] [place] [address] Member Subscriber Plan / Payer (Ef fective 2021-Present) Name:Lazaro Garcia Relation to Subscriber:Self Name:Lazaro Garcia Payer ID:Not on file Type:PPO Address: [place] [id number] Care Teams Grocery Deliverer Relationship Specialty Start Date End Date Pcp, Unknown PCP - General 05/04/23 Additional Source Comments The information contained in this document represents components of the legal health record. It is not the complete legal health record[facility]
--- NOTE | 2024-09-20 08:26 | MHC.PC.OV ---
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 blood-glucose meter (FreeStyle Lite Meter kit) Take blood sugar once per day empagliflozin (Jardiance) 25 mg PO DAILY lancets (FreeStyle Lancets) Take blood sugar once per day lisinopril 10 mg PO DAILY metformin ER 500 mg PO BID 30 days pravastatin 10 mg PO BEDTIME tirzepatide (Mounjaro) 5 mg (0.5 mL) subcut QWEEK Tobacco use date assessed: 09/20/24 Dental Screening Dental Screen Date: 09/20/24 Did you have a dental visit in the last 12 months?: Yes Did you have a dental problem in the last 6 months where you did not have access to dental care?: No Was dental information given to patient?: Patient has dentist HPI Annual PE HPI Details History of Present Illness The patient is a 38-year-old male presenting for a physical exam and diabetes management. His current A1c is 5.6, which is considered well-controlled. He has been on metformin 750 mg ER twice daily, which is now being reduced to 500 mg twice daily ER due to good glycemic control. The patient maintains a healthy lifestyle with adequate exercise and dietary management. He is due for an eye exam as part of his diabetes management plan. Health Maintenance - Eye exam scheduled for diabetes management Social History - Exercise: Engages in regular physical activity - Diet: Adheres to a healthy diet plan Review of Systems Physical Exam General: Cooperative, healthy appearing, comfortable, no acute distress and well developed Orientation: Patient oriented x3 Limitations: No limitations Head: Normal to inspection Ears: Hearing grossly normal bilaterally Nose: Normal external nose present Face and sinus: Normal facial exam Eyes: Appearance normal, both eyes and all related structures Neck: Normal visual inspection and Yes full ROM Respiratory: Normal respiratory effort and able to speak in complete sentences. Clear to auscultation bilaterally Cardiovascular: Regular rate and rhythm. Normal S1 and S2 GI: Normal to inspection. Soft to palpation and nontender : Testicles without masses/lesions and no hernias appreciated Skin: No rashes or lesions noted Neuro: Patient oriented x3 Extremities: Normal to inspection, use of monofilament, + sensation. intact feet bilat Results - Labs: Hemoglobin A1c at 5.6% Plan The plan includes reducing the patient's metformin dosage from 750 mg ER twice daily to 500 mg twice daily ER due to well-controlled A1c levels. The patient will continue his current exercise and dietary regimen to maintain glycemic control. An eye exam is scheduled as part of his diabetes management plan. Discussion Notes I discussed with the patient the impressive control of his diabetes as evidenced by his A1c of 5.6%. We agreed to reduce his metformin dosage and continue monitoring his lifestyle habits. I emphasized the importance of the upcoming eye exam for ongoing diabetes management. Patient Instructions - Continue taking metformin 500 mg ER twice daily. - Maintain regular exercise and healthy diet. - Schedule and attend the upcoming eye exam. [facility] Medical History Tinea unguium Surgical History No pertinent past surgical history Family History Mother Heart problem Father Diabetes Social History Housing: Apartment Alcohol intake: current Alcohol intake frequency: holidays/special occasions only Alcohol type: beer Patient Tobacco Use Status: Former Tobacco user Tobacco use type: Smokeless Tobacco e-Cigarette/Vaping Use: Currently Using service: No Current occupational status: employed Current occupation: [employer] Current occupational exposures/hazards: No Cognitive needs: No Hearing needs: No Vision needs: No Questionnaire PHQ-9 Over the last 2 weeks, how often have you been bothered by any of the following problems? 2. Feeling down, depressed, or hopeless: not at all 3. Trouble falling or staying asleep, or sleeping too much: not at all 4. Feeling tired or having little energy: not at all 5. Poor appetite or overeating: not at all 6. Feeling bad about yourself - or that you are a failure or have let yourself or your family down: not at all 7. Trouble concentrating on things, such as reading the newspaper or watching television: not at all 8. Moving or speaking so slowly that other people could have noticed. Or the opposite - being so fidgety or restless that you have been moving around a lot more than usual: not at all 9. Thoughts that you would be better off or of hurting yourself in some way: not at all Source: Developed by Drs. Campos Koch, Meghan Mac, Trey Lawson and colleagues, with an educational tammie from [employer]. Thrive Questionnaire Date Thrive assessed: 03/09/24 I am a: Patient What is your living situation today?: I have a steady place to live Within the past 12 months, did the food you bought not last and you didn't have the money to get more?: Never true Within the past 12 months, did you worry whether your food would run out before you got money to buy more?: Never true Do you have trouble paying for medicines?: No Do you have trouble getting transportation to medical appointments?: No Do you have trouble paying your heating and electricity bill?: No Do you have trouble taking care of your child, family member or friend?: No Do you have trouble with day-to-day activities such as bathing, preparing meals, shopping, managing finances, etc.?: No Are you currently unemployed and looking for a job?: No Are you interested in more education?: No Please select the resources that you would like help with: None Currently or been in a relationship where the following occur: I choose not to answer THRIVE Score: 0 EEVLYN-7 AMB Questionnaire EVELYN-7 Date EVELYN - 7 assessed: 03/09/24 Source: Developed by Drs. Campos Koch, Meghan Mac, Trey Lawson and colleagues, with an educational tammie from [employer]. Physical exam (Primary Care) Vital Signs: Last Vital Signs Pulse 83 09/20/24 08:30 Resp 16 09/20/24 08:30 BP 110/70 09/20/24 08:30 Pulse Ox 97 09/20/24 08:30 Oxygen Delivery Method Room Air 09/20/24 08:30 BMI result Body Mass Index 32.0 Tobacco/Smoking Status: Tobacco use Status Tobacco use date assessed 09/20/24 09/20/24 08:34 Patient Tobacco Use Status Former Tobacco user 09/20/24 08:27 Tobacco use type Smokeless Tobacco 09/20/24 08:27 e-Cigarette/Vaping Use Currently Using 09/20/24 08:27 Thrive Assessment: Date of Thrive Assessment Date Thrive assessed 03/09/24 09/20/24 08:27 Currently or been in a relationship where the following occur: I choose not to answer Results AMB Hemoglobin A1c AMB Hemoglobin A1c 5.6 % Last Edit by Fernanda Xavier MA on 09/20/24 08:56 Results Reviewed Results Reviewed: Laboratory Last Values Hgb A1c (Clinic) 5.6 % (4.0-6.0) 09/20/24 08:53 Coding Level of Care Code Est Pt Level 3 (51344) Est Pt Prev Care 18-39y(14237) Diagnoses Uncontrolled type 2 diabetes mellitus with hyperglycemia E11.65 Encounter for routine adult physical exam with abnormal findings Z00.01 Assessment & Plan Assessment & Plan (1) Uncontrolled type 2 diabetes mellitus with hyperglycemia: Code(s): E11.65 - Type 2 diabetes mellitus with hyperglycemia Category: Medical (2) Encounter for routine adult physical exam with abnormal findings: Code(s): Z00.01 - Encounter for general adult medical examination with abnormal findings Category: Medical Plan . Orders: Orders AMB Hemoglobin A1c Today Z13.9 - Encounter for screening, unspecified Complete Blood Count Auto Diff Today E11.65 - Type 2 diabetes mellitus with hyperglycemia, Z00.01 - Encounter for general adult medical examination with abnormal findings TSH reflex Free T4 Today E11.65 - Type 2 diabetes mellitus with hyperglycemia, Z00.01 - Encounter for general adult medical examination with abnormal findings Comprehensive [place]. Panel Fast Today E11.65 - Type 2 diabetes mellitus with hyperglycemia, Z00.01 - Encounter for general adult medical examination with abnormal findings UA CC w/rflx Micro + Cult Today E11.65 - Type 2 diabetes mellitus with hyperglycemia, Z00.01 - Encounter for general adult medical examination with abnormal findings Lipid Panel Today E11.65 - Type 2 diabetes mellitus with hyperglycemia, Z00.01 - Encounter for general adult medical examination with abnormal findings Microalbumin, Random (w Creat) Today E11.65 - Type 2 diabetes mellitus with hyperglycemia Medications: New pravastatin 10 mg PO BEDTIME 30 tabs 2RF Changed From metformin ER 750 mg PO BID 180 tabs 1RF To metformin ER 500 mg PO BID 60 tabs 1RF 30 days Discontinued atorvastatin Discontinued Reason: Doctor's Order 10 mg PO BEDTIME 90 tabs 1RF
[2024-09-20 08:30] VITALS: BP 110/70; PULSE 83; RESP 16; O2SAT 97; BMI 32.0
== END 2024-09-20 09:28 | disposition home or self-care (01) ==
LOC: HO.HMCC 08:17
PROVIDERS: PCP Nurse Practitioner Family; Visit Provider Nurse Practitioner Family
DX: Z00.01 Encounter for general adult medical examination with abnormal findings (principal); E11.65 Type 2 diabetes mellitus with hyperglycemia

== ENCOUNTER → 2024-09-20 08:17 | Outpatient (BNVA) | payer OTHER, SELFPAY | PROVIDERS: PCP Nurse Practitioner Family; Visit Provider Nurse Practitioner Family | DX: Z00.01 Encounter for general adult medical examination with abnormal findings (principal); B35.1 Tinea unguium; E11.65 Type 2 diabetes mellitus with hyperglycemia; Z79.84 Long term (current) use of oral hypoglycemic drugs | CPT/HCPCS: 83036 ==